=== PATIENT | female | born 1985 | race Caucasian/White ===

== ENCOUNTER → 2016-12-27 | Outpatient (CLI) | payer BC ==
[~2016-12-27] MED LIST: FLUT0.15; POLY335019 PO; ZINC50TA36; ZNTT/150 PO
[2016-12-27 12:33] LABS: BASO % 0.2 %; BASO ABS # 0.01 K/uL (0-0.2); COMPLETE YES; HEMATOCRIT 38.2 % (37-47); IG% 0.2 %; LYMPH % 27.8 %; LYMPH ABS # 1.69 K/uL (1.2-3.4); MEAN CORPUSCULAR HEMOGLOBIN 29.2 pg (25-34); MEAN CORPUSCULAR HGB CONC 33.5 g/dl (32-36); MEAN PLATELET VOLUME 11.7 fL (7.4-10.4); NEUT % 58.8 %; PLATELET COUNT 241 K/uL (130-400); RED BLOOD COUNT 4.39 M/uL (4.2-5.4); WHITE BLOOD COUNT 6.09 K/uL (4.8-10.8)
[2016-12-27 14:18] LABS: URINE APPEARANCE CLEAR (CLEAR); URINE BILIRUBIN NEG (NEG); URINE COLOR YELLOW; URINE NITRITE NEG (NEG); URINE SPECIFIC GRAVITY 1.025 (1.000-1.030); UROBILINOGEN NEG (NEG)
[2016-12-27 14:23] LABS: MANUAL MICROSCOPIC REQUIRED? NO; REVIEW REQ? NO
[2016-12-30 10:23] LABS: CHLAMYDIA TRACH RNA*** NOT DETECTED (NOT DETECTED); GC (NEIS GONORRHOEAE)RNA** NOT DETECTED (NOT DETECTED)
== END | disposition home or self-care (01) ==
LOC: C.LAB1850 10:17
PROVIDERS: ATTEND Obstetrics & Gynecology
DX: Z34.91 Encounter for supervision of normal pregnancy, unspecified, first trimester (principal)

== ENCOUNTER → 2017-03-04 | Outpatient (CLI) | payer BC ==
[2017-03-04 14:47] LABS: GTGD 50 Grams
== END | disposition home or self-care (01) ==
LOC: C.LAB1850 10:19
PROVIDERS: ATTEND Obstetrics & Gynecology
DX: Z34.82 Encounter for supervision of other normal pregnancy, second trimester (principal)

== ENCOUNTER → 2017-06-02 | Outpatient (CLI) | payer OTHER ==
[2017-06-02 12:14] LABS: HEMATOCRIT 35.4 % (37-47); HEMOGLOBIN 11.8 g/dL (12.0-16.0)
== END | disposition home or self-care (01) ==
LOC: C.LAB1850 09:43
PROVIDERS: ATTEND Obstetrics & Gynecology
DX: Z34.83 Encounter for supervision of other normal pregnancy, third trimester (principal)

== ENCOUNTER → 2017-07-16 | Outpatient (CLI) | payer OTHER ==
[~2017-07-16] MED LIST changes: +ALBU18002; +CLR10 PO; +PRENTAB26 PO; +RANI150T85 PO; -ZNTT/150 PO
== END | disposition home or self-care (01) ==
LOC: C.LABSPEC 11:14
PROVIDERS: ATTEND Obstetrics & Gynecology
DX: Z34.83 Encounter for supervision of other normal pregnancy, third trimester (principal); Z3A.00 Weeks of gestation of pregnancy not specified

== ENCOUNTER 2017-07-31 23:31 | Inpatient (IN) | payer OTHER ==
[~2017-07-31] VITALS: Ht 157.5 cm; Wt 72.7 kg
[~2017-07-31 23:31] MED LIST changes: -ALBU18002; -CLR10 PO; -PRENTAB26 PO
[2017-08-01] MEDS ORDERED: LACTATED RINGER'S 1000ML 1,000 ML IV SCH (00:12)
[2017-08-01] MEDS ORDERED: LACTATED RINGER'S 1000ML 1,000 ML IV PRN (00:12)
[2017-08-01] MEDS ORDERED: PENICILLIN G POTASSIUM IV 3 MU in DEXTROSE 5% 100ML 100 ML IV PRN (00:15)
[2017-08-01] MEDS ORDERED: PENICILLIN G POTASSIUM IV 6 MU in DEXTROSE 5% 250ML 250 ML IV ONE (00:45)
[2017-08-01 00:51] LABS: HEMATOCRIT 36.1 % (37-47); HEMOGLOBIN 12.3 g/dL (12.0-16.0); MEAN CELL VOLUME 86.6 fL (80-100); MEAN CORPUSCULAR HEMOGLOBIN 29.5 pg (25-34); MEAN CORPUSCULAR HGB CONC 34.1 g/dl (32-36); MEAN PLATELET VOLUME 12.8 fL (7.4-10.4); PLATELET COUNT 151 K/uL (130-400); RED CELL DISTRIBUTION WIDTH CV 13.8 % (11.5-14.5); RED CELL DISTRIBUTION WIDTH SD 43.6 fL (36.4-46.3); WHITE BLOOD COUNT 9.71 K/uL (4.8-10.8)
[2017-08-01 01:09] VITALS: Ht 157.5 cm; Wt 72.7 kg
[2017-08-01] MEDS ORDERED: CALCIUM CARBONATE 500 MG CHEWABLE PO ONE (01:30)
[2017-08-01] MEDS ORDERED: NURSING VERBAL MED ORDER ONE (01:30)
[2017-08-01] MEDS ORDERED: ALBU18002 (03:12)
[2017-08-01] MEDS ORDERED: PRENTAB26 PO (03:16)
[2017-08-01] MEDS ORDERED: CLR10 PO (03:16)
[2017-08-01] MEDS ORDERED: OXYTOCIN 30 UNITS/500ML NSS IV ONE (04:05)
[2017-08-01] MEDS ORDERED: OXYCODONE/ACETAMINOPHEN 5-325 TAB PO PRN (04:45)
[2017-08-01] MEDS ORDERED: DIPHTHERIA/TETANUS/PERTUSSIS 0.5 ML SYR/VIAL IM. ONE (04:45)
[2017-08-01] MEDS ORDERED: SUPERCREAM 0.870 % 15GM JAR EXT PRN (04:45)
[2017-08-01] MEDS ORDERED: ACETAMINOPHEN 325 MG TAB PO PRN (04:45)
[2017-08-01] MEDS ORDERED: HYDROCORTISONE ACETATE 25 MG SUPP PR PRN (04:45)
[2017-08-01] MEDS ORDERED: BENZOCAINE 20% AER SPR 82.5 GM CAN EXT PRN (04:45)
[2017-08-01] MEDS ORDERED: OXYTOCIN 30 UNITS/500ML NSS IV PRN (04:45)
[2017-08-01] MEDS ORDERED: LANOLIN OINT EXT PRN (04:45)
--- NOTE | 2017-08-01 05:08 | DELIVERY SUMMARY ---
DATE OF OPERATION: 08/01/2017 PREOPERATIVE DIAGNOSES: 1. Intrauterine at 38 and 2/7 weeks. 2. Rupture of membranes in early active labor. POSTOPERATIVE DIAGNOSES: Same. PROCEDURE: Normal spontaneous vaginal delivery. SURGEON: Michaelle Elkins MD. ANESTHESIA: None. ESTIMATED BLOOD LOSS: 300 mL. DESCRIPTION OF THE PROCEDURE: The patient presented to labor and delivery with gross rupture of membranes and her cervix 1-2 cm dilated, 50 effaced, -2 station. She was scanned and found to be vertex. She progressed spontaneously without intervention and I was called into the room when the head was . The head was then controlled to delivery into DOA position. The nose and mouth were bulb suctioned. Nuchal cord was reduced. The head then rested to an EZRA position and then the rest of the baby was then delivered without difficulty into the bed. The nose and mouth were bulb suctioned. There was immediate cry. The infant was placed on the maternal abdomen for drying and attention. The cord was clamped at approximately 1-1/2 minutes of life. Cord blood was obtained. Placenta delivered spontaneously intact with a 3-vessel cord. Cervix, sulci, rectum and perineum was intact. Hemostasis was obtained with dilute Pitocin and fundal massage. Estimated blood loss was 300 mL. Apgars 7 and 9. Mother and baby doing well at the end of the delivery. I attest to the content of the Intraoperative Record and any orders documented therein. Any exception s are noted below.
[2017-08-01] MEDS ORDERED: IBUPROFEN 600 MG TAB ONE (05:10)
[2017-08-01] MEDS: PRENATAL VITAMIN TAB PO SCH (08:35)
[2017-08-01] MEDS: DOCUSATE SODIUM 100 MG CAP PO SCH ×2 (08:36→20:16)
[2017-08-01] MEDS: RANITIDINE HCL 150 MG TAB PO SCH ×2 (08:36→17:08)
[2017-08-01 08:45] VITALS: BP 105/71; PULSE 76; TEMP 36.7; O2SAT 98
[2017-08-01 12:00] VITALS: BP 113/72; PULSE 73; TEMP 36.9
[2017-08-01 15:45] VITALS: BP 128/84; PULSE 67; TEMP 36.6
[2017-08-01] MEDS: IBUPROFEN 600 MG TAB PO PRN ×2 (15:52→20:17)
[2017-08-01 20:00] VITALS: BP 113/70; PULSE 55; TEMP 36.3
[2017-08-02 00:35] VITALS: BP 115/70; PULSE 58; TEMP 36.7; O2SAT 100
[2017-08-02] MEDS: IBUPROFEN 600 MG TAB PO PRN ×3 (01:00→18:26)
[2017-08-02 03:00] VITALS: BP 105/73; PULSE 57; TEMP 36.8; O2SAT 96
--- NOTE | 2017-08-02 06:42 | Progress Note ---
Subjective Aug 02, 2017. Subjective conversation w/ patient, conversation w/ family, physical exam Ambulation: ambulating normally Voiding: no voiding problems Passing Gas: Yes Diet Tolerance: Regular Diet Lochia: Small Feeding Type: Breast Feeding Pain: minimal, well controlled Comment: pt seen and assessed this am at bedside; no acute events overnight Review of Systems Constitutional: No fever, No chills Respiratory: No cough, No shortness of breath Cardiac: No chest pain, No edema Abdomen: No pain, No nausea, No vomiting Female : No dysuria no headaches or calf pain Objective Vital Signs Date Time Temp Pulse Resp B/P (MAP) Pulse Ox O2 Delivery O2 Flow Rate FiO2 08/02/17 03:00 36.8 57 16 105/73 (84) 96 Room Air 08/02/17 00:35 36.7 58 18 115/70 (85) 100 Room Air 08/02/17 00:35 100 Room Air 08/01/17 20:00 36.3 55 18 113/70 (84) Room Air 08/01/17 15:45 36.6 67 18 128/84 (99) Room Air 08/01/17 15:45 Room Air 08/01/17 12:00 36.9 73 18 113/72 (86) Room Air 08/01/17 08:45 36.7 76 16 105/71 (82) 98 Room Air Physical Exam General Appearance: WELL-APPEARING, WD/WN, NO APPARENT DISTRESS Respiratory/Chest: chest non-tender, lungs clear, normal breath sounds Cardiovascular: regular rate, rhythm, no edema, no murmur Abdomen: normal bowel sounds, non tender, soft Fundus: Firm, Non-Tender, Relation to Umbilicus (2cm below) Extremities: normal range of motion, non-tender, normal inspection, no pedal edema, no calf tenderness Laboratory Results Last 24 Hours Test 08/02/17 04:44 Medications Current Inpatient Medications Medications (Trade) Dose Ordered Sig/Kaela Route Start Time Stop Time Status Last Admin Dose Admin Oxytocin (Pitocin IV) 30 units UD PRN IV 08/01/17 04:45 08/31/17 04:44 Benzocaine (Dermoplast Aero Spr) 1 appln PRN PRN EXT 08/01/17 04:45 08/31/17 04:44 Cocaine HCl (Supercream 0.870% Cr) BID PRN EXT 08/01/17 04:45 08/15/17 04:44 08/01/17 09:03 15 GM Hydrocortisone Acetate (Anusol Hc Supp) 25 mg BID PRN AK 08/01/17 04:45 08/31/17 04:44 Lanolin (Lanolin Oint) PRN PRN EXT 08/01/17 04:45 08/31/17 04:44 Prenat Multivit/ Wallace/Iron/Folic Ac ( Vitamin Tab) 1 tab DAILY PO 08/01/17 08:00 08/31/17 07:59 08/01/17 08:35 1 TAB Ibuprofen (Motrin Tab) 600 mg Q4H PRN PO 08/01/17 04:45 08/31/17 04:44 08/02/17 01:00 600 MG Acetaminophen (Tylenol Tab) 650 mg Q6H PRN PO 08/01/17 04:45 08/31/17 04:44 Oxycodone/ Acetaminophen (Percocet 5-325mg Tab) 1 tab Q4H PRN PO 08/01/17 04:45 08/15/17 04:44 Docusate Sodium (coLACE CAP) 100 mg BID PO 08/01/17 08:00 08/31/17 07:59 08/01/17 20:16 100 MG Ranitidine HCl (zANTac TAB) 150 mg BID PO 08/01/17 08:30 08/31/17 08:29 08/01/17 17:08 150 MG Assessment and Plan Post- Day#: 1 Continue Routine Care: 31yo F PPD 1 s/p Continue routine care, encourage ambulation, breast feeding pain control with rx prn Resident Physician Supervision Note: I was present with Dr. Vaca during the history and exam. I discussed the case with the resident and agree with the findings and plan as documented in the note. Any exceptions or clarifications are listed here: [None] Documented By: Perez Babb Resident Tracking Resident Involvement: Resident Care Provided Care Provided: OB Delivery
--- NOTE | 2017-08-02 06:43 | Discharge Instructions ---
Discharge Instructions Date of Service Aug 02, 2017. Admission Reason for Admission: Check Labor Discharge Discharge Diagnosis / Problem: s/p Discharge Goals Goal(s): Routine recovery after delivery Medications Continue Dispensed Medications: supercream, dermaplast, tucks Activity Recommendations Activity Limitations: per Instructions/Follow-up section . Instructions / Follow-Up Instructions / Follow-Up ACTIVITY RECOMMENDATIONS: * Gradual return to full activity over the next 2-3 weeks. * No lifting - nothing heavier than baby over the next 2-3 weeks. * Do not engage in vigorous exercise, sexual activity or sports until cleared by your physician. * Do not drive or operate any motorized equipment until cleared by your physician. * You may shower/bathe daily. MEDICATIONS: For discomfort or pain, you may use Acetaminophen (Tylenol), Ibuprofen (Advil), or Naproxen (Aleve) following the package directions. For constipation you may use Colace following the package directions. BREAST CARE: If you are not breast feeding: * Wear a supportive bra 24 hours a day for one to two weeks. * Avoid stimulating your breasts and nipples as much as possible during the first few weeks after delivery. * When taking a shower, have the warm water hit your back, not breasts. * When your breasts feel full, apply ice packs. Usually three to four times a day helps ease the discomfort. * Take a mild pain medication (Tylenol / Motrin) when you are uncomfortable. If breast feeding: * Use breast milk to lubricate nipples. Lansinoh cream may be used for sore nipples. You do not need to remove cream prior to breast feeding. If using a different brand of cream, check the label for directions regarding removal of cream prior to nursing. * Wear a supportive bra. * If having problems with breasts or breast feeding, call a behavioral consultant or your health care provider. EPISIOTOMY CARE: After delivery, if you have an episiotomy (stitches), the following steps will ease discomfort and aid healing. * For the first 24 hours after delivery, place ice packs next to your episiotomy to help reduce swelling. * After the first 24 hour-period, sitz baths, either portable or in the tub, are suggested. A shower with a shower arm sprayed over the episiotomy may be comforting. * Whitley care should be done after each voiding and bowel movement. Squirt warm water from a plastic bottle over the perineum (region of the body between the anus and urinary opening) and pat dry. * Use Dermoplast to ease discomfort. Shake container. Golden directly over the episiotomy. Place a Tucks on a clean sanitary pad next to your episiotomy. SPECIAL CARE INSTRUCTIONS: When you are discharged from the hospital, it is important for you to follow the instructions listed below: * During the first week at home, you should be able to care for yourself and your baby. In addition, the usual light household activities are encouraged. * Limit your activities to the way you feel. Do not try to clean the house or move furniture. Be sensible. * If you actively engage in sports and have done so up until the time of your delivery, you may resume these activities as soon as you feel able. This may take up to one month or even longer. Use good judgment. * Continue to take your vitamins for at least six weeks after the of your baby. * Your diet need not be limited unless you were on a special diet before your delivery. Breast-feeding mothers need around 2500 calories per day and at least 64-80 ounces of fluid per day (8 to 10 glasses). * You should eat foods from the four major food groups. Crash diets or fad diets are to be avoided. Eating lean meats, fresh fruits and vegetables, low-fat dairy products, high fiber foods and a regular exercise program, will help you get back to your pre- weight without putting your health at risk. * Constipation is sometimes a problem after delivery. Take a mild laxative as needed. If breast feeding, Milk of Magnesia is acceptable to use. You may use a suppository or Fleets enema if no episiotomy. * A daily shower or tub bath is suggested. Be sure to thoroughly and gently dry the perineum. * A bloody vaginal discharge will usually continue until around four weeks post . A small amount of bleeding may continue for as long as six weeks. Vaginal discharge changes from the bright red bleeding after delivery to pink then brownish and finally yellowish-pink before becoming white and disappearing. * Bleeding may increase with activity. Your first period may come in 4-8 weeks. If you are breast feeding, your period may be delayed even longer. * [place] (sex) can begin whenever both you and your partner feel comfortable and do not have any form of genital infection. It is recommended that you wait at least six weeks for internal and external healing to occur. If you have questions, please talk to your health care practitioner. A condom should be used to prevent infection and . * Foreplay, gentle intercourse and lubrication is very important the first several times to prevent pain. A water-based lubricant such as K-Y jelly or Astroglide may be used. * If you have RH negative blood and your baby is RH positive, you will receive RHOGAM by injection prior to discharge. The nurse will give you a card to keep with you that has the date and place that you received RHOGAM after delivery. * During your care, you had a Rubella screen done to check for the presence of rubella antibodies in your blood. If your test was negative, you will receive a Rubella vaccine prior to discharge. This vaccine may cause a fever, soreness at the injection site and flu-like symptoms. If these symptoms persist, notify your health care practitioner. is not advised for one month after a Rubella vaccine. * Verbalizes understanding of car seat law as reviewed with patient nursing. * Car Seat hand-out given and reviewed with patient by nursing. * Shaken baby information reviewed with patient by nursing. Call you doctor if: * Heavy bleeding (saturating several pads an hour) or passing clots the size of your fist. * A fever >101 degrees F (38.3 degrees C) on two occasions four hours apart and /or chills. * Unusual pain in the pelvic or vaginal areas. * "Baby Blues" lasting longer than two weeks. If you have any questions or concerns, call your health care practitioner at . FOLLOW UP VISIT: * Please call the office at to schedule a 6 week examination. It is important you keep this appointment. It is important for you to make arrangements for either yearly or twice yearly check-ups thereafter. Current Hospital Diet Patient's current hospital diet: Regular OB Diet Discharge Diet Recommended Diet: Regular OB Diet Pending Studies Studies pending at discharge: no Medical Emergencies . Who to Call and When: Medical Emergencies: If at any time you feel your situation is an emergency, please call 911 immediately. . Non-Emergent Contact Non-Emergency issues call your: Cyber Security Manager . . "Provider Documentation" section prepared by Nola Meadows. .
[2017-08-02 08:00] VITALS: BP 113/75; PULSE 62; TEMP 36.7
[2017-08-02] MEDS: RANITIDINE HCL 150 MG TAB PO SCH ×2 (08:36→18:25)
[2017-08-02] MEDS: PRENATAL VITAMIN TAB PO SCH (08:36)
[2017-08-02] MEDS: DOCUSATE SODIUM 100 MG CAP PO SCH ×2 (08:36→20:15)
[2017-08-02 08:56] LABS: HEMATOCRIT 35.5 % (37-47); HEMOGLOBIN 12.1 g/dL (12.0-16.0)
[2017-08-02 16:40] VITALS: BP 120/76; PULSE 61; TEMP 36.8; O2SAT 98
[2017-08-02] MEDS ORDERED: NURSING VERBAL MED ORDER ONE (17:45)
[2017-08-03] MEDS: IBUPROFEN 600 MG TAB PO PRN ×2 (00:08→08:12)
[2017-08-03 00:10] VITALS: BP 108/66; PULSE 53; TEMP 36.8
[2017-08-03 08:10] VITALS: BP 115/68; PULSE 60; TEMP 36.9; O2SAT 99
[2017-08-03] MEDS: PRENATAL VITAMIN TAB PO SCH (08:10)
[2017-08-03] MEDS: RANITIDINE HCL 150 MG TAB PO SCH (08:10)
--- NOTE | 2017-08-03 08:37 | Progress Note ---
Subjective Aug 03, 2017. Subjective conversation w/ patient, physical exam Ambulation: ambulating normally Voiding: no voiding problems Diet Tolerance: Regular Diet Lochia: Small Feeding Type: Breast Feeding Pain: no pain issues Objective Vital Signs Date Time Temp Pulse Resp B/P (MAP) Pulse Ox O2 Delivery O2 Flow Rate FiO2 08/03/17 00:10 36.8 53 18 108/66 (80) Nasal Cannula 08/03/17 00:10 Room Air 08/02/17 16:40 36.8 61 20 120/76 (91) 98 Room Air 08/02/17 16:40 98 Room Air Physical Exam General Appearance: WELL-APPEARING, WD/WN, NO APPARENT DISTRESS Respiratory/Chest: lungs clear Cardiovascular: regular rate, rhythm Abdomen: non tender, soft Fundus: Firm, Relation to Umbilicus (2 down) Extremities: non-tender Laboratory Results Last 24 Hours Test 08/02/17 08:47 Hemoglobin 12.1 g/dL Hematocrit 35.5 % Assessment and Plan Post- Day#: 2 Continue Routine Care: stable, d/c home, instructions reviewed. f/u 6 wks pp check.
[2017-08-03 08:59] VITALS: BP_DIAS 68; PULSE 60; TEMP 36.9
[2017-08-03] MEDS: DOCUSATE SODIUM 100 MG CAP PO SCH (09:31)
== END 2017-08-03 10:00 | disposition home or self-care (01) | DRG 775 ==
LOC: C.LD 23:31 → OBSVTOIN 08-01 00:15 → C.OBG 08-01 08:01
PROVIDERS: ADMIT Obstetrics & Gynecology; ATTEND Obstetrics & Gynecology
PROC: 10E0XZZ Delivery of Products of Conception, External Approach (ICD-10-PCS; principal; 2017-08-01)
DX: O69.81X0 Labor and delivery complicated by cord around neck, without compression, not applicable or unspecified (principal); Z3A.38 38 weeks gestation of pregnancy; Z37.0 Single live birth

== ENCOUNTER → 2017-09-25 | Outpatient (CLI) | payer OTHER ==
[~2017-09-25] MED LIST changes: +ALBU18002; +CLR10 PO; +PRENTAB26 PO
== END | disposition home or self-care (01) ==
LOC: C.PAPS 16:44
PROVIDERS: ATTEND Obstetrics & Gynecology
DX: Z12.4 Encounter for screening for malignant neoplasm of cervix (principal)

== ENCOUNTER 2019-06-23 11:14 | Inpatient (IN) ==
[2019-06-23] MEDS ORDERED: OXYTOCIN 30 UNITS/500 ML BAG IV PRN (11:33)
[2019-06-23] MEDS ORDERED: LACTATED RINGER'S 1,000 ML IV PRN (11:33)
--- NOTE | 2019-06-23 11:36 | Labor Progress Brief Note ---
Date of Service June 23, 2019 Subjective Pain with ctx Q5min, no LOF, no VB, good FM. Assessment & Plan (1) Normal labor and delivery: Laboring, prefers natural childbirth, ok to ambulate. Will give Ancef for GBS per plan. Physical Exam Physical Exam: 5/100/-1 Intact membranes FHT Cat 1 [place] Q2-4m. Results & Data Vital Signs (Past 12 Hours) Vital Signs Pulse BP 06/23/19 11:29 80 113/56 L Coding Level of Care Code None Diagnoses Normal labor and delivery O80
[2019-06-23 12:00] LABS: Hematocrit (blood only) 36.9 % (37-47); Hemoglobin 12.5 g/dL (12.0-16.0); Mean Corpuscular Hemoglobin 29.6 pg (25-34); Mean Corpuscular Volume 87.4 fL (80-100); Platelet Count 167 K/uL (130-400); RDW Coefficient of Variation 14.5 % (11.5-14.5); RDW Standard Deviation 46.2 fL (36.4-46.3); Red Blood Count 4.22 M/uL (4.2-5.4); White Blood Count 12.29 K/uL (4.8-10.8)
[2019-06-23] MEDS ORDERED: CEFAZOLIN 2000MG 2,000 MG/15 ML SYR IV ONE (12:00)
[2019-06-23 12:01] LABS: Mean Corpuscular Hgb Conc 33.9 g/dL (32-36)
--- NOTE | 2019-06-23 12:59 | Delivery Summary ---
Vaginal Delivery Summary Date of Service June 23, 2019 Vaginal Delivery Summary DIAGNOSES: 1. Owen intrauterine at 38w5d gestation. 2. Spontaneous onset of labor. 3. Group B Streptococcus Pos. PROCEDURE: Spontaneous vaginal delivery without laceration. SURGEON: Natty Tejada MD. OIL PRODUCER: None. ESTIMATED BLOOD LOSS: 300 mL. COMPLICATIONS: None. PLACENTA: Spontaneous and intact with a 3-vessel cord. DISPOSITION: Stable to labor and delivery. DESCRIPTION: The patient pushed well and brought the head to in DOA position. The infant's head was allowed to deliver with contraction force and no further active pushing, with the perineum protected during this time. The shoulders delivered easily with a maternal pushing effort. There was a body cord. The right shoulder was anterior. The shoulders and body delivered without any difficulty, and the infant was placed on the maternal abdomen. It was vigorous and moving all extremities, and making respiratory efforts. The cord was doubly clamped by the MD and then cut by the FOB. The placenta delivered spontaneously and was noted to be intact and with a 3VC. The cervix, vagina and perineum were examined and were found to be without defect requiring repair. The fundus was firm and lochia minimal immediately after delivery.
[2019-06-23] MEDS ORDERED: LACTATED RINGER'S 1,000 ML IV SCH (13:03)
[2019-06-23] MEDS ORDERED: OXYCODONE/ACETAMINOPHEN 5mg/325mg TAB PO PRN (13:03)
[2019-06-23] MEDS ORDERED: ALBUTEROL HFA 8 GM INHALER INH PRN (13:03)
[2019-06-23] MEDS ORDERED: DIPHTHERIA/TETANUS/PERTUSSIS 0.5 ML SYR/VIAL IM ONE (13:03)
[2019-06-23] MEDS ORDERED: BENZOCAINE 20% AER SPR 82.5 GM CAN EXT PRN (13:03)
[2019-06-23] MEDS ORDERED: HYDROCORTISONE ACETATE 25 MG SUPP PR PRN (13:03)
[2019-06-23] MEDS ORDERED: SUPERCREAM 0.870% 15 GM JAR EXT PRN (13:03)
[2019-06-23] MEDS ORDERED: ACETAMINOPHEN 325 MG TAB PO PRN (13:03)
[2019-06-23] MEDS ORDERED: IBUPROFEN 600 MG TAB PO ONE (13:04)
[2019-06-23] MEDS: IBUPROFEN 600 MG TAB PO PRN ×2 (16:57→20:41)
[2019-06-23] MEDS ORDERED: CEFAZOLIN 1000MG 1,000 MG/7.5 ML SYR IV PRN (20:00)
[2019-06-23] MEDS: DOCUSATE SODIUM 100 MG CAP PO SCH (20:34)
[2019-06-23] MEDS: FLUTICASONE/VILANTEROL 200/25MCG 14 PUFFS/INHALER INH SCH (20:35)
[2019-06-24] MEDS: IBUPROFEN 600 MG TAB PO PRN ×3 (00:48→16:20)
[2019-06-24 06:00] LABS: Mean Corpuscular Hgb Conc 35.3 g/dL (32-36)
[2019-06-24 06:09] LABS: Hematocrit (blood only) 30.6 % (37-47); Hemoglobin 10.8 g/dL (12.0-16.0); Mean Corpuscular Hemoglobin 30.4 pg (25-34); Mean Corpuscular Volume 86.2 fL (80-100); RDW Coefficient of Variation 14.4 % (11.5-14.5); Red Blood Count 3.55 M/uL (4.2-5.4); White Blood Count 11.23 K/uL (4.8-10.8)
--- NOTE | 2019-06-24 06:19 | Obstetrical Progress Note ---
Date of Service June 24, 2019 Assessment & Plan (1) Status post vaginal delivery: Raquel is a 33 yo on PPD1 after at 38w - GBS +, Rh+, Rubella immune - treated with Ancef at delivery - Vitals reviewed and WNL - patient is doing clinically well continue routine post care - After discharge will have [address] Tejada. Supervising Physician Co-Signing Physician Notes I have reviewed the resident's note and examined the patient myself, and agree with the note above. Subjective Ambulation: ambulating normally Voiding: no voiding problems Passing Gas:: Yes Diet Tolerance:: regular diet Lochia:: Small Feeding Type:: breast feeding Review of Systems Constitutional: no fever, no chills and no sweats Eyes: no worsening vision Respiratory: no cough and no dyspnea Cardiovascular: no chest pain, no palpitations, no edema and no calf pain Gastrointestinal: no nausea and no vomiting Genitourinary: no dysuria and no urinary frequency Neurologic: no headache(s) Physical Exam Constitutional: WD/WN, vitals as above no acute distress Respiratory: normal respiratory effort, lungs clear to auscultation does not use accessory muscles Auscultation: no crackles, no rales, no rhonchi, no wheezes and no pleural rub Cardiovascular: Rate/Rhythm: regular rate and regular rhythm Heart Sounds: normal S1 and normal S2; no gallop, no murmur and no cardiac rub Extremities: no calf tenderness and no pedal edema Gastrointestinal (Abdomen): Inspection/Auscultation: normal bowel sounds; abdomen not distended Percussion/Palpation: abdomen soft Genitourinary: Uterus: fundus firm, palpable 2 cm below the umbilicus Results & Data Vital Signs (Past 12 Hours) Vital Signs Temp Pulse Resp BP Pulse Ox 06/24/19 03:35 36.4 C L 53 L 16 114/62 97 06/24/19 00:25 36.4 C L 65 18 104/67 99 06/23/19 19:40 36.6 C 56 L 20 120/74 98 Resident Activity Tracking Resident Involvement: Resident Care Provided Care Provided: OB Delivery
[2019-06-24 06:25] LABS: Mean Platelet Volume 13.6 fL (7.4-10.4); Platelet Count 132 K/uL (130-400)
[2019-06-24 06:26] LABS: Platelet Estimate Decreased (Normal)
[2019-06-24] MEDS: DOCUSATE SODIUM 100 MG CAP PO SCH ×2 (09:07→20:11)
[2019-06-24] MEDS: PRENATAL VITAMIN 1 TAB PO SCH (09:08)
[2019-06-24] MEDS: FAMOTIDINE 40 MG TABLET PO SCH (14:46)
[2019-06-24] MEDS: FLUTICASONE/VILANTEROL 200/25MCG 14 PUFFS/INHALER INH SCH (20:14)
[2019-06-25 06:03] LABS: Hematocrit (blood only) 35.6 % (37-47); Hemoglobin 11.6 g/dL (12.0-16.0)
--- NOTE | 2019-06-25 06:41 | Obstetrical Progress Note ---
Date of Service June 25, 2019 Assessment & Plan (1) Status post vaginal delivery: Raquel is a 33 yo on PPD2 after at 38w - GBS +, Rh+, Rubella immune - treated with Ancef at delivery - Vitals reviewed and WNL - patient is doing clinically well Ready for discharge. Instructions reviewed. - After discharge will have [address] Tejada. Supervising Physician Co-Signing Physician Notes Resident Physician Supervision Note: I was present with Dr. Rainey during the history and exam. I discussed the case with the resident and agree with the findings and plan as documented in the note. Any exceptions or clarifications are listed here: no complaints. ready for d/c home. Documented By: Adrienne Adam MD, FACOG Subjective Ambulation: ambulating normally Voiding: no voiding problems Passing Gas:: Yes Diet Tolerance:: regular diet Lochia:: Small Feeding Type:: breast feeding Review of Systems Constitutional: no fever, no chills and no sweats Eyes: no worsening vision Respiratory: no cough and no dyspnea Cardiovascular: no chest pain, no palpitations, no edema and no calf pain Gastrointestinal: no nausea and no vomiting Genitourinary: no dysuria and no urinary frequency Neurologic: no headache(s) Physical Exam Constitutional: WD/WN, vitals as above no acute distress Respiratory: normal respiratory effort, lungs clear to auscultation does not use accessory muscles Auscultation: no crackles, no rales, no rhonchi, no wheezes and no pleural rub Cardiovascular: Rate/Rhythm: regular rate and regular rhythm Heart Sounds: normal S1 and normal S2; no gallop, no murmur and no cardiac rub Extremities: no calf tenderness and no pedal edema Gastrointestinal (Abdomen): Inspection/Auscultation: normal bowel sounds; abdomen not distended Percussion/Palpation: abdomen soft Genitourinary: Uterus: fundus firm, palpable 2 cm below the umbilicus Results & Data Vital Signs (Past 12 Hours) Vital Signs Temp Pulse Resp BP Pulse Ox 06/24/19 23:45 36.6 C 59 L 15 102/62 99 Resident Activity Tracking Resident Involvement: Resident Care Provided Care Provided: OB Delivery
[2019-06-25] MEDS: DOCUSATE SODIUM 100 MG CAP PO SCH (07:58)
[2019-06-25] MEDS: PRENATAL VITAMIN 1 TAB PO SCH (07:58)
[2019-06-25] MEDS: FAMOTIDINE 40 MG TABLET PO SCH (08:02)
[2019-06-25] MEDS: IBUPROFEN 600 MG TAB PO PRN (08:31)
== END 2019-06-25 11:50 | disposition home or self-care (01) | DRG 807 ==
LOC: OPB 11:14 → 4S1 11:16 → 4S2 15:57

== ENCOUNTER → 2021-04-14 17:00 | Observation (INO) | END | disposition home or self-care (01) | LOC: 4S1 ==

== ENCOUNTER 2021-04-18 03:45 | Inpatient (IN) ==
[2021-04-18] MEDS ORDERED: OXYTOCIN 30 UNITS/500 ML BAG IV PRN ×2 (04:03→08:38)
[2021-04-18] MEDS ORDERED: ceFAZolin 2000MG 2,000 MG/15 ML SYR IV ONE (04:15)
--- NOTE | 2021-04-18 04:16 | History & Physical Report ---
Date of Service April 18, 2021 Assessment & Plan (1) : Plan: 35 y/o at 39 4/7 wga presenting in labor Fetus cat 1 Labor - manage expectantly GBS+, pcn allergic but tolerated ancef in the past so will use this Desires epidural History of Present Illness Chief Complaint: Contractions Primary Care Provider: Tati Iverson MD 35 y/o at 39 4/7 wga w/ MISSY 12/4 by LMP presents w/ c/o contractions increasing in frequency and intensity. +FM and bloody mucous discharge, denies other LOF or VB PNI: AMA Asthma GBS+ by urine Hx vaginal wall hematoma with first delivery Past SVP RESEARCH AND STRATEGIC ANALYSIS Hx: G1 SAB 2015 G2 2016 at 38 wks c/b vaginal wall hematoma G3 2018 at 38 wks G4 2019 at 38 wks G5 current q28-32d cycles Denies hx STIs Denies hx abnl pap, 08/2020 neg cotest Allergies Allergy/AdvReac Type Severity Reaction Status Date / Time pecan nut Allergy Severe ANAPHYLAXIS Verified 04/11/21 09:16 walnut Allergy Severe SWELLING Verified 04/11/21 09:16 benzoyl peroxide Allergy Mild HIVES Verified 04/11/21 09:16 cat dander Allergy Verified 04/11/21 09:16 Penicillins Allergy Swelling Verified 04/11/21 09:16 of Lip/Tongue/Throat Home Medications Medication Instructions Recorded Confirmed Type Symbicort 160 mcg-4.5 2 puff INHALATION BID #30.6 g NS 07/12/20 04/11/21 Rx mcg/actuation HFA aerosol inhaler (budesonide-formoterol) famotidine 40 mg tablet (Pepcid) 40 mg PO DAILY #90 tab 08/04/20 04/11/21 Rx hydrocortisone 2.5 % topical cream 1 applic NV DAILY PRN 08/04/20 04/11/21 History with perineal applicator (Proctozone-HC) nystatin 100,000 unit/gram topical 1 applic TOPICAL BID g 08/04/20 04/11/21 History cream prenat.vits,cortez,hmu-olwc-ekkjc 1 tab PO DAILY 09/04/20 04/11/21 History ondansetron HCl 4 mg tablet 4 mg PO Q6H PRN #20 tab 09/15/20 04/11/21 Rx (Zofran) albuterol sulfate 90 mcg/actuation 2 puff INHALATION Q6H PRN #18 g 10/11/20 04/11/21 Rx aerosol inhaler Patient History Medical History Acute bronchitis Asthma Cervical somatic dysfunction External hemorrhoids Gastroesophageal reflux H/O maternal vaginal hematoma, currently IBS (irritable bowel syndrome) Irregular contractions Lymphadenopathy, axillary Missed Segmental and somatic dysfunction of rib cage Segmental and somatic dysfunction of thoracic region Surgical History H/O wisdom tooth extraction No pertinent past surgical history Family History Sister Anxiety Father Heart disease Hypertension IBS (irritable bowel syndrome) Mother Hypothyroidism IBS (irritable bowel syndrome) Grandmother (Maternal) Breast cancer Denies family history of Ovarian cancer Prostate cancer Myocardial infarction Colorectal cancer Social History (Updated 09/04/20 @ 14:14 by Maegan Cox) Smoking Status: Never smoker Second Hand Exposure: No; Hx Alcohol Use: No Hx Substance Use: No Preferred Language: Lebanese Communication Ability: Effective Visual Impairment: No Limitations Hearing Ability: Normal Regional Operations Manager Required: No Beliefs That Will Affect Care: None marital status: marital status details: Trip [phone] Current Living Situation: Spouse and Family Current Living Situation Comment: lives with and children current occupational status: unemployed Feels Safe at Home: Yes Childhood Exposure to Second-Hand Smoke: No Dental Care, Regularly: Yes Physical Activity Frequency: 1-2 Times per Week Seatbelt Use: always Sunscreen Use: Yes Assistive Devices: None Physical Exam Genitourinary: OB Exam Abdomen: + vertex Manual OB Exam: + cervical dilation 5 cm, + cervical effacement 80% and + station -2 OB Exam Monitor Tracing: + external FHT monitor used, + external uterine monitor used (q4) and + category I (130/mod/+accel/-decel) Results & Data ([facility]) Laboratory Results OB Labs: Blood Type O Positive 09/13/20 Antibody Screen NEGATIVE 09/13/20 Hemoglobin 11.7 g/dL (12.0-16.0) L 10/01/21 Hematocrit 35.1 % (37-47) L 02/16/21 Mean Corpuscular Volume 86.7 fL (80-100) 09/13/20 Platelet Count 262 K/uL (130-400) 09/13/20 Rubella IgG Antibody Immune (Immune) 09/13/20 Rapid Plasma Reagin Nonreactive (Nonreactive) 09/13/20 Hepatitis B Surface Antigen Neg (Neg) 09/13/20 HIV (1&2) Ab and P24 Ag, 4th Gener Neg (Neg) 09/13/20 Glucose 1 Hour 50 gm Load 87 mg/dl (70-130) 02/01/21 OB Optional Labs: Chlamydia trachomatis RNA NOT DETECTED (NOT DETECTED) 09/13/20 Neisseria gonorrhoeae RNA NOT DETECTED (NOT DETECTED) 09/13/20 Labs Reviewed: CF/SMA negative in prior (11/16/18) declined genetics--[facility] Coding Level of Care Code None Diagnoses Z34.90
[2021-04-18] MEDS: LACTATED RINGER'S 1,000 ML IV PRN ×2 (04:23→05:26)
[2021-04-18] MEDS ORDERED: ePHEDrine sulfate 50 MG/ML AMP ONE (04:31)
[2021-04-18] MEDS ORDERED: fentaNYL citrate 100 MCG/2 ML VIAL ONE (04:31)
[2021-04-18] MEDS ORDERED: SODIUM CHLORIDE 0.9% INJ 10 ML VIAL ONE (04:31)
[2021-04-18] MEDS ORDERED: BUPIVACAINE 0.25% 30 ML VIAL ONE (04:31)
[2021-04-18] MEDS ORDERED: fentaNYL 2MCG/ML ROPIVACAINE 1.25MG/ML 100 ML BAG EPI ONE (04:32)
[2021-04-18 04:40] LABS: Hematocrit (blood only) 37.3 % (37-47); Hemoglobin 12.3 g/dL (12.0-16.0); Mean Corpuscular Hemoglobin 29.3 pg (25-34); Mean Corpuscular Volume 88.8 fL (80-100); Mean Platelet Volume 13.6 fL (7.4-10.4); Platelet Count 173 K/uL (130-400); RDW Coefficient of Variation 13.9 % (11.5-14.5); RDW Standard Deviation 45.4 fL (36.4-46.3); White Blood Count 10.25 K/uL (4.8-10.8)
--- NOTE | 2021-04-18 05:09 | Labor Progress Brief Note ---
Date of Service April 18, 2021 Subjective SROM, feeling more pressure Assessment & Plan (1) : Plan: 35 y/o at 39 4/7 wga presenting in labor Fetus cat 1 Labor - manage expectantly GBS+, to start ancef now as just received Desires epidural Admission and Anticipated Discharge Date Admission Date: April 18, 2021 Physical Exam Genitourinary: Manual OB Exam: + cervical dilation 6 cm, + cervical effacement 90% and + station 0 OB Exam Monitor Tracing: + external FHT monitor used, + external uterine monitor used (q3-6) and + category I (125/mod/+accel/-decel) Results & Data ([facility]) Vital Signs (Past 12 Hours) Vital Signs Pulse BP 04/18/21 04:16 77 130/81 Coding Level of Care Code None Diagnoses Z34.90
[2021-04-18] MEDS ORDERED: diphenhydrAMINE 50 MG/ML VIAL IV PRN (05:21)
[2021-04-18] MEDS ORDERED: ONDANSETRON INJ 2 MG/ML 2 ML VIAL IV PRN (05:21)
[2021-04-18] MEDS ORDERED: NALBUPHINE HCL INJ 10 MG/ML AMP IV PRN (05:21)
[2021-04-18] MEDS ORDERED: fentaNYL 2MCG/ML ROPIVACAINE 1.25MG/ML 100 ML BAG EPI PRN (05:21)
[2021-04-18] MEDS ORDERED: NALOXONE HCL 1 MG in SODIUM CHLORIDE 0.9% 1000ML 1,000 ML IV PRN (05:21)
[2021-04-18] MEDS ORDERED: NALOXONE HCL 0.4 MG/1 ML VIAL/CARP IV PRN (05:21)
[2021-04-18] MEDS ORDERED: ePHEDrine sulfate 50 MG/ML AMP IV PRN (05:21)
--- NOTE | 2021-04-18 05:28 | Anesthesiology Consultation ---
Date of Service April 18, 2021 The patient's weight is 166 pounds. Temp is 36.6. RR is 16. Assessment & Plan Chart Review Chart Review: Patient NOT seen in Pre Admission Testing and Acceptable Risk for Labor Epidural Consults Requested none ASA ASA2 Proposed Anesthesia Anesthesia Type: Labor Epidural and CSE Risk / Benefits Reviewed With: PT / POA / Parent / Guardian, Accepts Plan and Informed Consent Obtained History Allergies Allergy/AdvReac Type Severity Reaction Status Date / Time pecan nut Allergy Severe ANAPHYLAXIS Verified 04/11/21 09:16 walnut Allergy Severe SWELLING Verified 04/11/21 09:16 benzoyl peroxide Allergy Mild HIVES Verified 04/11/21 09:16 cat dander Allergy Verified 04/11/21 09:16 Penicillins Allergy Swelling Verified 04/11/21 09:16 of Lip/Tongue/Throat Medications Home Medications Medication Instructions Recorded Confirmed Last Taken Symbicort 160 mcg-4.5 2 puff INHALATION BID #30.6 g NS 07/12/20 04/11/21 Unknown mcg/actuation HFA aerosol inhaler (budesonide-formoterol) famotidine 40 mg tablet (Pepcid) 40 mg PO DAILY #90 tab 08/04/20 04/11/21 Unknown hydrocortisone 2.5 % topical cream 1 applic TN DAILY PRN 08/04/20 04/11/21 Unkn own with perineal applicator (Proctozone-HC) nystatin 100,000 unit/gram topical 1 applic TOPICAL BID g 08/04/20 04/11/21 Unknown cream prenat.vits,cortez,cxv-pyvz-rojkd 1 tab PO DAILY 09/04/20 04/11/21 Unknown ondansetron HCl 4 mg tablet 4 mg PO Q6H PRN #20 tab 09/15/20 04/11/21 Unknown (Zofran) albuterol sulfate 90 mcg/actuation 2 puff INHALATION Q6H PRN #18 g 10/11/20 1 06/11/20 Unknown aerosol inhaler Active Medications Generic Name Dose Route Start Last Admin Trade Name Freq PRN Reason Stop Dose Admin Lactated Ringer's 1,000 mls @ 125 mls/hr 04/18/21 04:03 04/18/21 05:26 Lr IV 04/20/21 04:02 125 mls/hr .Q8H PRN Administration L&D Protocol Protocol Past Medical History Medical History Acute bronchitis Asthma Cervical somatic dysfunction External hemorrhoids Gastroesophageal reflux H/O maternal vaginal hematoma, currently IBS (irritable bowel syndrome) Irregular contractions Lymphadenopathy, axillary Missed Segmental and somatic dysfunction of rib cage Segmental and somatic dysfunction of thoracic region Exercise / Class Metabolic Activity II 4-5 Yardwork/Stairs/Walk up hill Past Family History Family History Sister Anxiety Father Heart disease Hypertension IBS (irritable bowel syndrome) Mother Hypothyroidism IBS (irritable bowel syndrome) Grandmother (Maternal) Breast cancer Denies family history of Ovarian cancer Prostate cancer Myocardial infarction Colorectal cancer Past Surgical History Surgical History H/O wisdom tooth extraction No pertinent past surgical history Past Anesthesia History No Hx of Anesthesia Complications and No Family Hx of Anesthesia Complications Social History Smoking Status: Never smoker Hx Alcohol Use: No Hx Substance Use: No substance use type: does not use Review of Systems no chest pain or sob Physical Exam Vital Signs Last Vital Signs Pulse 92 H 04/18/21 05:21 BP 130/81 04/18/21 04:16 Pulse Ox 100 04/18/21 05:21 ENMT Mouth: no TMJ abnormality Thyromental Distance: > or= 3.5 Finger Breadths Mallampati Class: II Neck normal visual inspection Respiratory normal respiratory effort Auscultation: lungs clear to auscultation bilaterally Cardiovascular Rate/Rhythm: regular rate and regular rhythm Musculoskeletal Spine: normal cervical ROM Neurologic moves all extremities Psychiatric Orientation: alert and oriented x 3 Testing Laboratory Results 04/18/21 04:24
[2021-04-18] MEDS ORDERED: BENZOCAINE 20% AER SPR 82.5 GM CAN EXT PRN (08:38)
[2021-04-18] MEDS ORDERED: bisacodyL 10 MG SUPP PR PRN (08:38)
[2021-04-18] MEDS ORDERED: HYDROCORTISONE ACETATE 25 MG SUPP PR PRN (08:38)
[2021-04-18] MEDS ORDERED: SUPERCREAM 0.870% 15 GM JAR EXT PRN (08:38)
[2021-04-18] MEDS ORDERED: ALBUTEROL HFA 8 GM INHALER INH PRN (08:38)
[2021-04-18] MEDS ORDERED: ACETAMINOPHEN 325 MG TAB PO PRN (08:38)
[2021-04-18] MEDS ORDERED: DIPHTHERIA/TETANUS/PERTUSSIS 0.5 ML SYR/VIAL IM ONE (08:38)
--- NOTE | 2021-04-18 08:54 | Delivery Summary ---
Vaginal Delivery Summary Date of Service April 18, 2021 Vaginal Delivery Summary [facility] PREOPERATIVE DIAGNOSIS: 1. Single intrauterine at 39 4/7 wga 2. Labor 3. Advanced maternal age 4. GBS+ POSTOPERATIVE DIAGNOSIS: 1. Single intrauterine at 39 4/7 wga 2. Labor 3. Advanced maternal age 4. GBS+ 5. Delivered PROCEDURE: 1. Normal spontaneous vaginal delivery. SURGEON: Susannah Rmoero MD ANESTHESIA: Epidural. ESTIMATED BLOOD LOSS: 300 mL FLUIDS: Continuous LR. URINE OUTPUT: None. COMPLICATIONS: None. CONDITION: Stable. INDICATIONS: 35 y/o at 39 4/7 wga presented this morning with complaints of contractions increasing in frequency and intensity. Denied leaking of fluid or vaginal bleeding. She was found to be 5cm on arrival. Ancef was started for GBS+ status. She spontaneously ruptured her membranes and received an epidural for pain control. She then progressed to complete and desired to push. FINDINGS: A viable female , weight pending with Apgars of 7 and 9 at 1 and 5 minutes respectively. SPECIMEN: Cord blood OPERATIVE REPORT: The patient progressed to 10 cm, 100% effaced and +2 station, pushed over intact perineum with anesthesia to deliver a viable female infant, weight and Apgars as above. Head of delivered in RADHA position. No nuchal cord was present. Body and shoulders were delivered without difficulty. was delivered to maternal abdomen and nursing staff. Delayed cord clamping was performed for 60 seconds. Cord was clamped and cut. Cord blood was obtained. Placenta delivered spontaneously intact with 3-vessel cord. IV oxytocin and fundal massage were given for excellent hemostasis. Vagina, cervix, perineum, and placenta were inspected. A hemostatic first degree was noted and not needed to be repaired. Sponge and needle counts correct x2. No sponges were left behind. Mother and stable in immediate period. [facility] Vaginal Delivery Charge Vaginal Delivery Codes: 33717 global code for the antepartum, delivery, and post- Delivery Type Details: [facility]
[2021-04-18] MEDS ORDERED: NON-FORMULARY MEDICATION (Prenat.Vits,Cal,Min-Iron-Folic tablet) PO SCH (09:00)
--- NOTE | 2021-04-18 09:02 | Anesthesia Procedure Note ---
Date of Service April 18, 2021 Anesthesia Post Epidural Note Vital Signs Vital Signs: Temp Pulse Resp BP Pulse Ox 98.4 F 76 18 117/64 98 04/18/21 08:27 04/18/21 08:54 04/18/21 08:42 04/18/21 08:54 04/18/21 08:26 Notes Mental Status: alert / awake / arousable and participated in evaluation Nausea / Vomiting: adequately controlled Pain: adequately controlled Airway Patency, RR, SpO2: stable & adequate BP & HR: stable & adequate Hydration State: stable & adequate Neuraxial Anesthesia: was administered and sensory block is resolving Anesthetic Complications: no major complications apparent and Pt Satisfied with anesthetic care Epidural: Removed without complications and With tip intact
[2021-04-18] MEDS ORDERED: AMMONIA, AROMATIC INHAL 1 EA AMP INH ONE (10:35)
[2021-04-18] MEDS: IBUPROFEN 600 MG TAB PO PRN ×4 (10:37→22:59)
[2021-04-18] MEDS ORDERED: ceFAZolin 1000MG 1,000 MG/7.5 ML SYR IV PRN (11:04)
[2021-04-18] MEDS: FAMOTIDINE 40 MG TABLET PO SCH (14:20)
[2021-04-18] MEDS: FLUTICASONE/VILANTEROL 100/25MCG 14 PUFFS/INHALER INH SCH (14:21)
[2021-04-18] MEDS: DOCUSATE SODIUM 100 MG CAP PO SCH (20:27)
[2021-04-19] MEDS: IBUPROFEN 600 MG TAB PO PRN ×3 (03:21→12:05)
[2021-04-19 06:40] LABS: Mean Corpuscular Hgb Conc 32.5 g/dL (32-36)
--- NOTE | 2021-04-19 07:01 | Obstetrical Progress Note ---
Date of Service <Imelda Elliott MD - Last Filed: 04/19/21 08:08> April 19, 2021 Assessment & Plan <Imelda Elliott MD - Last Filed: 04/19/21 08:08> (1) Vaginal delivery: 35 yo , complicated by AMA and GBS+, now PPD1 from at 39wk4d -D/c today, instructions given -Vitals reviewed- HDS, afebrile -Blood type O+, GBS+, Rubella immune -Encourage ambulation -Pain controlled with ibuprofen, acetaminophen PRN -Encourage -F/u in 6 weeks with OB <Adrienne Adam MD, FACOG - Last Filed: 04/19/21 08:17> (1) Vaginal delivery: Subjective <Imelda Elliott MD - Last Filed: 04/19/21 08:08> Ambulation: ambulating normally Voiding: no voiding problems Passing Gas:: Yes Diet Tolerance:: regular diet Lochia:: Small Feeding Type:: breast feeding Current Pain Level(1-10): 0 Pt doing well overall, no acute complaints or distress. Reports some soreness. Pain well controlled with medication. Review of Systems Denies fever/chills. Denies dyspnea, cough. Denies chest pain. Denies breast pain or discharge. Denies dysuria. Denies headache. Denies back pain. Physical Exam <Imelda Elliott MD - Last Filed: 04/19/21 08:08> General: Alert, oriented, no acute distress Cardiac: Regular rate and rhythm, normal S1, S2. No murmurs noted. Respiratory: Clear to auscultation b/l with good air flow entry, symmetric chest rise and fall. No wheezes or crackles. No increased work of breathing or accessory muscle use. Abdomen: Soft, nontender, nondistended. Fundus firm and palpable at 1 cm below umbilicus. Surgical incision clean, dry and intact without erythema, warmth or drainage. No guarding or rebound. Skin: No rashes or lesions Extremities: Warm, dry and well-perfused with capillary refill <2s b/l. No lower extremity edema, erythema or swelling. Negative Filomena's sign b/l. Results & Data ([facility]) <Imelda Elliott MD - Last Filed: 04/19/21 08:08> Vital Signs (Past 12 Hours) Vital Signs Temp Pulse Resp BP 04/19/21 03:15 36.5 C 65 16 122/74 04/18/21 23:00 36.5 C 56 L 16 115/71 04/18/21 19:30 36.7 C 65 16 118/73 <Adrienne Adam MD, FACOG - Last Filed: 04/19/21 08:17> Co-Signing Physician Notes Resident Physician Supervision Note: I was present with Dr. Elliott during the history and exam. I discussed the case with the resident and agree with the findings and plan as documented in the note. Any exceptions or clarifications are listed here: doing well, ready to go home. , rh pos, ri. ff 2 down nt, nt calves. f/u 6 wk pp check, instructions reviewed. Documented By: Adrienne Adam MD, FACOG Resident Activity Tracking <Imelda Elliott MD - Last Filed: 04/19/21 08:08> Resident Involvement: Resident Care Provided Care Provided: OB Delivery
[2021-04-19 07:02] LABS: Hematocrit (blood only) 34.2 % (37-47); Hemoglobin 11.1 g/dL (12.0-16.0); Mean Corpuscular Hemoglobin 28.9 pg (25-34); Mean Corpuscular Volume 89.1 fL (80-100); RDW Coefficient of Variation 14.3 % (11.5-14.5); RDW Standard Deviation 46.7 fL (36.4-46.3); Red Blood Count 3.84 M/uL (4.2-5.4); White Blood Count 8.94 K/uL (4.8-10.8)
[2021-04-19 07:17] LABS: Mean Platelet Volume 13.6 fL (7.4-10.4); Platelet Count 145 K/uL (130-400)
[2021-04-19 07:18] LABS: Platelet Estimate Normal (Normal)
[2021-04-19] MEDS ORDERED: PRENATAL VITAMIN 1 TAB PO SCH (08:00)
[2021-04-19] MEDS: DOCUSATE SODIUM 100 MG CAP PO SCH (08:10)
[2021-04-19] MEDS: FAMOTIDINE 40 MG TABLET PO SCH (09:52)
[2021-04-19] MEDS: FLUTICASONE/VILANTEROL 100/25MCG 14 PUFFS/INHALER INH SCH (12:05)
[2021-04-19] MEDS ORDERED: bisacodyL 5 MG TABEC PO SCH (20:00)
== END 2021-04-19 12:15 | disposition home or self-care (01) | DRG 807 ==
LOC: OPB 03:45 → 4S1 03:50 → 4S2 11:00